=== PATIENT | male | born 1960 | race Two or more races ===

== ENCOUNTER 2022-05-02 02:43 | Emergency (ER) | payer MEDICAID ==
[~2022-05-02] VITALS: Ht 177.8 cm; Wt 82.6 kg
--- NOTE | 2022-05-02 03:07 | NUR ---
BIBS C/O LACERATION TO TOP OF HEAD. -KO TDAP UNKNOWN -BLOOD THINNERS. AAOX4. NO SOB. NO COMPLAINTS OF PAIN. LIGHT HEADED. LACERATION ON THE HEAD IS APPR 3.5CM. NO N/V. PLACED COMFORTABLY IN BED. VS CHECKED.
--- NOTE | 2022-05-02 03:15 | NUR ---
PT WHEELED TO CT DEPT
--- NOTE | 2022-05-02 03:25 | NUR ---
DERMABOND APPLIED BY DR JACKSON AT THE LACERATED WOUND
[2022-05-02] MEDS ORDERED: TDAP [DIPH/PERTUSSIS/TET] 0.5 ML VIAL IM ONE ×2 (03:30→03:41)
[2022-05-02 05:46] VITALS: BP 126/85
--- NOTE | 2022-05-02 05:49 | NUR ---
Patient discharged to home in stable condition. Written and verbal after care instructions given. Patient verbalizes understanding of instruction.
== END 2022-05-02 06:02 | disposition home or self-care (01) ==
LOC: ER 02:58
DX: S01.81XA Laceration without foreign body of other part of head, initial encounter (principal); W20.8XXA Other cause of strike by thrown, projected or falling object, initial encounter; Y93.89 Activity, other specified; Y92.89 Other specified places as the place of occurrence of the external cause; Y99.8 Other external cause status
CPT/HCPCS: 70450-TC; 72125-TC; 90715